=== PATIENT | male | born 1945 | race Caucasian/White ===

== ENCOUNTER 2017-03-05 21:46 | Emergency (ER) | payer BC ==
[2017-03-05] MEDS ORDERED: METHYLPREDNISOLONE 40MG/VIAL IM ONE (21:52)
[2017-03-05] MEDS ORDERED: METHYLPREDNISOLONE PF 125MG/VIAL IM ONE (21:56)
--- NOTE | 2017-03-05 21:58 | Emergency Department Record ---
History of Present Illness - General Chief complaint: Rash Stated complaint: RASH ON BOTH LEGS Time Seen by Provider: 03/05/17 21:51 Source: Patient Mode of Arrival: Ambulatory Limitations: No limitations - History of Present Illness Initial comments: 71 yo male presents with a rash to his lower legs. It is mildly itchy. 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 No other current symptoms. No fever, no cough, no shortness of breath. He has Crohn's disease that is very stable. PCP is Gwen. He is on 4mg daily of Prednisone. MD complaint: Rash -: Days(s) (1) Location: LLE, RLE Severity: Moderate Quality: Other (itches) Consistency: Constant Improves with: None Context: Other (working outside around known poison concepcion) Associated symptoms: Denies other symptoms Treatments Prior to Arrival: Other ([facility] [place]) - Related Data Home Medications Medication Instructions Recorded Confirmed Last Taken Alendronate Sodium 70 mg PO WEEKLY 12/02/14 03/05/17 04/11/16 Dicyclomine HCl 10 mg PO BID PRN 12/02/14 03/05/17 11/29/14 Glucosam/Rolly-Msm1/C/Chris/Bosw 1 tab PO DAILY 12/02/14 03/05/17 04/13/16 [Osteo Bi-Flex] Mesalamine [Pentasa] 1,000 mg PO TID 12/02/14 04/13/16 04/13/16 Omeprazole [Prilosec] 20 mg PO DAILY 12/02/14 03/05/17 04/13/16 Alprazolam 0.5 mg PO BID PRN 04/13/16 03/05/17 Unknown Calcium Carbonate/Vitamin D3 1 each PO DAILY 04/13/16 03/05/17 04/13/16 [Oyster Shell Calcium-Vit D Tab] Cholecalciferol (Vitamin D3) 10,000 unit PO DAILY 04/13/16 03/05/17 04/13/16 [Vitamin D3] Iron Polysaccharide Complex 150 mg PO DAILY 04/13/16 03/05/17 04/13/16 [Ferrex 150] Melatonin 10 mg PO QHS PRN 04/13/16 03/05/17 Unknown Multivit-Minerals/FA/Lycopene [One 1 each PO DAILY 08/03/05/17 04/13/16 Daily [employer] retargeting Tablet] Prednisone [Prednisone 1Mg] 4 mg PO DAILY 03/05/17 03/05/17 Unknown Previous Rx's Medication Instructions Recorded Methylprednisolone [Medrol Dose 4 mg PO DAILY #1 tab.ds.pk 03/05/17 Pack] Allergies Allergy/AdvReac Type Severity Reaction Status Date / Time cephalexin monohydrate Allergy RASH Verified 04/13/16 19:29 [From Keflex] codeine [CODEINE] AdvReac Mild NAUSEA Verified 12/02/14 21:25 Review of Systems Constitutional: Denies: Chills, Fever, Weakness Eyes: Denies: Eye discharge, Eye pain, Photophobia ENT: Denies: Congestion, Epistaxis, Throat pain Respiratory: Denies: Cough, Dyspnea Cardiovascular: Denies: Chest pain Endocrine: Denies: Fatigue Gastrointestinal: Denies: Abdominal pain, Diarrhea, Hematochezia, Nausea, Vomiting Genitourinary: Denies: Dysuria, Frequency, Hematuria Musculoskeletal: Denies: Arthralgia, Myalgia, Neck pain Skin: Reports: Bruising, Rash Neurological: Denies: Headache Psychiatric: Denies: Anxiety Hematological/Lymphatic: Denies: Blood Clots, Easy bleeding, Easy bruising, Swollen glands Past Medical History - SOCIAL HISTORY Smoking Status: Former smoker - RESPIRATORY Hx Respiratory Disorders: Yes Hx Pneumonia: Yes (2011) Hx Sleep Apnea: Yes Hx of CPAP: Yes - CARDIOVASCULAR Hx Cardio Disorders: No - NEURO Hx Neuro Disorders: No - GI Hx GI Disorders: Yes Hx Abdominal Pain: Yes (off/on) Hx Crohn's Disease: Yes Hx Reflux: Yes Hx Nausea/Vomiting: Yes (off/on) Hx of Polyps: Yes - Hx Genitourinary Disorders: No - ENDOCRINE Hx Endocrine Disorders: No - MUSCULOSKELETAL Hx Musculoskeletal Disorders: Yes Hx Arthritis: Yes - PSYCH Hx Psych Problems: No - HEMATOLOGY/ONCOLOGY Hx Hematology/Oncology Disorders: Yes Hx Anemia: Yes (currently being treated for) Hx Bruising: Yes Hx Cancer: Yes (skin) Hx Chemotherapy: No Hx Radiation Therapy: No Hx Blood Transfusions: Yes (last-29 years ago) Hx Blood Transfusion Reaction: No Family Medical History Hx HTN: Mother Physical Exam - General General Appearance: Alert, Oriented x3, Cooperative, No acute distress - Head Head exam: Normal inspection - Eye Eye exam: Normal appearance, PERRL. negative: Conjunctival injection - ENT ENT exam: Normal exam Ear exam: Normal external inspection Nasal Exam: Normal inspection Mouth exam: Normal external inspection - Neck Neck exam: Normal inspection, Full ROM. negative: Tenderness - Respiratory Respiratory exam: Normal lung sounds bilaterally. negative: Accessory muscle use, Prolonged expiratory, Respiratory distress, Rhonchi, Stridor, Wheezes - Cardiovascular Cardiovascular Exam: Regular rate, Normal rhythm, Normal heart sounds - GI/Abdominal GI/Abdominal exam: Soft. negative: Tenderness - Rectal Rectal exam: Deferred - exam: Deferred - Extremities Extremities exam: negative: Normal inspection (rash to bilateral anterior shins , erythema, patchy to confleunt), Pedal edema - Back Back exam: Reports: Normal inspection, Full ROM. Denies: Muscle spasm, Rash noted, Tenderness - Neurological Neurological exam: Alert, Normal gait, Oriented X3, Reflexes normal - Psychiatric Psychiatric exam: Normal affect, Normal mood - Skin Skin exam: Erythema, Rash. negative: Cyanosis, Diaphoretic, Mottled, Pallor, Petechiae, Vesicles Distribution of rash: RLE, LLE Course - Reevaluation(s) Reevaluation #1: The rash is consistent with a contact dermatitis He will be placed on Medrol dose pack He was instructed to hold his Prednisone until completed then resume 4mg daily 03/05/17 21:57 Disposition Disposition: Discharge Clinical Impression: Contact dermatitis Qualifiers: Contact dermatitis type: unspecified Contact dermatitis trigger: unspecified trigger Qualified Code(s): L25.9 - Unspecified contact dermatitis, unspecified cause Disposition: Home, Self-Care Condition: (1) Good Instructions: Contact Dermatitis (ED) Additional Instructions: Return if worse, fever, bruising, pus or any new concerns Hold your Prednisone until finished with the Medrol dose pack Call your doctor to follow up first of the week Prescriptions: Methylprednisolone [Medrol Dose Pack] 4 mg PO DAILY #1 tab.ds.pk Forms: Patient Portal Access Time of Disposition: 22:00 Quality - Quality Measures Quality Measures: N/A - Blood Pressure Screening View Details: Yes Blood Pressure Classification: Pre-Hypertensive BP Reading Systolic Measurement: 173 Diastolic Measurement: 85 Screening for High Blood Pressure: < Pre-Hypertensive BP, F/U Documented > [ G8950] Pre-Hypertensive Follow-up Interventions: Referral to alternative/primary care provider.
== END 2017-03-05 22:11 | disposition home or self-care (01) ==
LOC: ER 21:46
DX: L25.9 Unspecified contact dermatitis, unspecified cause (principal)
CPT/HCPCS: 96372; 99283; J2930

== ENCOUNTER 2018-01-03 12:08 | Day surgery (SDC) | payer BC ==
[2018-01-03] MEDS ORDERED: LIDOCAINE 2% MDV (20MG/ML) 20ML VIAL IV ONE (12:09)
[2018-01-03] MEDS ORDERED: PROPOFOL 10 MG/ML VIAL IV ONE (12:09)
--- NOTE | 2018-01-04 13:50 | Operative Note ---
DATE OF SURGERY: 01/03/2018 OPERATION: COLONOSCOPY to the neoterminal ileum. INDICATION: Prior history of Crohn disease. The patient returns at this time for surveillance. Clinically he is doing well with a combination of low-dose prednisone (5 mg) and Pentasa daily. ANESTHESIA: Intravenous sedation was administered by the department of anesthesiology and included Diprivan titrated to effect. PROCEDURE: Following informed consent from this alert individual including a discussion of the risks and benefits of the procedure and an opportunity for the patient to ask questions, the patient was in the left lateral decubitus position. A digital rectal examination was performed. No abnormalities were noted. Following this, the Olympus [id number] video colonoscope was inserted into the rectum without resistance. The rectal mucosa had a normal appearance with normal folds and distensibility. The sigmoid colon likewise was free from changes. The colonoscope was advanced to 40 cm from the anal verge where an anastomosis was noted with the small bowel. There were superficial ulcerations noted around the anastomotic site but the anastomosis itself was widely patent and seemed fairly healthy without structuring. The neoterminal ileum was cannulated for approximately 20 cm and found to be normal. From this point, the colonoscope was then withdrawn. Biopsies were taken from the area of inflammation at the anastomotic site where superficial ulcerations were noted. The colonoscope was then withdrawn through the remaining colon. No additional changes were appreciated. Retroflexion in the rectum was accomplished with air insufflation and failed to demonstrate any abnormalities. The colon preparation throughout was good. The patient tolerated the procedure well and was returned to the recovery area in stable condition. IMPRESSION: 1. Superficial ulcerations and erythema with edema at the anastomotic site between the colon and neoterminal ileum. However, the anastomotic site itself was widely patent. Biopsies taken from the area of inflammation. 2. Normal neoterminal ileum. 3. Normal colon otherwise. RECOMMENDATIONS: The patient will continue on his current medical regiment. Further recommendations may be forthcoming pending results of biopsy obtained today. Followup will be with Dr. Diego Hidalgo as well. As always, thank you for allowing me to participate in the care of your patient. CC: Bogdan YOUSSEF
== END 2018-01-03 13:57 | disposition home or self-care (01) ==
LOC: HOP 12:08
PROVIDERS: ATTEND Internal Medicine Gastroenterology
DX: Z12.11 Encounter for screening for malignant neoplasm of colon (principal); K50.90 Crohn's disease, unspecified, without complications; K52.9 Noninfective gastroenteritis and colitis, unspecified

== ENCOUNTER 2019-05-23 12:16 | Observation (INO) | payer BC ==
[2019-05-23] MEDS ORDERED: NITROGLYCERIN 0.4MG SL TABLET #25 BTL SL ONE (12:36)
[2019-05-23] MEDS ORDERED: ASPIRIN 81 MG CHEWABLE TABLET PO ONE (12:36)
--- NOTE | 2019-05-23 12:43 | Emergency Department Record ---
History of Present Illness - General Chief Complaint: Chest Pain Stated Complaint: CHEST PAIN Time Seen by Provider: 05/23/19 12:36 Source: Patient Mode of Arrival: Wheelchair Limitations: No limitations - History of Present Illness Initial Comments: Pt to the ED from home with his for c/o chest pain. Pt states he has had pain for 5 days in the right sternal area into the right shoulder. 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 There is no left CP or radiation. No AGNIESZKA, no nausea or diaphoresis. He has no hx of cardiac disease, no smoking, no HTN or DM. No family hx of cardiac . His pain is constant unless "I find just the right position to sit". He has not needed to stop his wood splitting due to pain. No lightheaded symptoms. Onset/Timin -: Days(s) Onset: Other Pain Location: Substernal Pain Radiation: None Severity scale (1-10): 4 Quality: Tightness Consistency: Constant, Intermittent Improves With: Nothing Worsens With: Nothing Treatments Prior to Arrival: None - Related Data Home Medications Medication Instructions Recorded Confirmed Last Taken Alendronate Sodium [Fosamax] 70 mg PO WEEKLY 05/23/19 05/23/19 Unknown Allergies Allergy/AdvReac Type Severity Reaction Status Date / Time amoxicillin trihydrate Allergy Intermediate nausea Unverified 02/17/19 14:09 [From Augmentin] potassium clavulanate Allergy Intermediate nausea Unverified 02/17/19 14:09 [From Augmentin] cephalexin monohydrate Allergy RASH Unverified 02/17/19 14:09 [From Keflex] codeine [CODEINE] AdvReac Mild NAUSEA Unverified 02/17/19 14:09 Travel Screening - Travel/Exposure Within Last 30 Days Have you traveled within the last 30 days?: No Review of Systems Constitutional: Denies: Chills, Fever Eyes: Denies: Eye discharge, Photophobia ENT: Denies: Congestion, Ear pain Respiratory: Denies: Cough, Dyspnea Cardiovascular: Reports: As per HPI, Chest pain. Denies: Arrhythmia, Dyspnea on exertion, Palpitations, Syncope Endocrine: Denies: Fatigue Gastrointestinal: Denies: Abdominal pain, Diarrhea, Nausea, Vomiting Musculoskeletal: Reports: Other (hx of right shoulder rotor cuff issues). Denies: Arthralgia, Back pain, Joint swelling Skin: Denies: Bruising, Rash Neurological: Denies: Headache, Tingling, Tremors, Weakness Psychiatric: Denies: Anxiety, Suicidal thoughts Hematological/Lymphatic: Denies: Anemia, Swollen glands Past Medical History - SOCIAL HISTORY Smoking Status: Former smoker - RESPIRATORY Hx Respiratory Disorders: Yes Hx Pneumonia: Yes (2012) Hx Sleep Apnea: Yes Hx of CPAP: Yes - CARDIOVASCULAR Hx Cardio Disorders: No - NEURO Hx Neuro Disorders: No - GI Hx GI Disorders: Yes Hx Abdominal Pain: Yes (off/on) Hx Crohn's Disease: Yes Hx Reflux: Yes Hx of Polyps: Yes - Hx Genitourinary Disorders: Yes Hx Prostate Problems: Yes (enlarged) - ENDOCRINE Hx Endocrine Disorders: No - MUSCULOSKELETAL Hx Musculoskeletal Disorders: Yes Hx Arthritis: Yes - PSYCH Hx Psych Problems: No - HEMATOLOGY/ONCOLOGY Hx Hematology/Oncology Disorders: Yes Hx Anemia: Yes (currently being treated for) Hx Bruising: Yes Hx Cancer: Yes (skin) Hx Chemotherapy: No Hx Radiation Therapy: No Hx Blood Transfusions: Yes (last-29 years ago) Hx Blood Transfusion Reaction: No Family Medical History Any Significant Family History?: Yes Hx HTN: Mother Physical Exam - General General Appearance: Alert, Oriented x3, Cooperative, No acute distress - Head Head exam: Normal inspection - Eye Eye exam: Normal appearance, PERRL - ENT ENT exam: Normal exam, Mucous membranes moist, Normal external ear exam, Normal orophraynx, TM's normal bilaterally - Neck Neck exam: Normal inspection, Full ROM. negative: Tenderness - Respiratory Respiratory exam: Normal lung sounds bilaterally, Chest wall tenderness (tender to right sternal border without skin lesions. Pt localized with one finger the area of pain. ), Other. negative: Respiratory distress - Cardiovascular Cardiovascular Exam: Regular rate, Normal rhythm, Normal heart sounds Peripheral Pulses: 2+: Radial (R), Radial (L) - GI/Abdominal GI/Abdominal exam: Soft, Normal bowel sounds. negative: Tenderness - Extremities Extremities exam: Normal inspection, Full ROM, Normal capillary refill. negative: Tenderness - Back Back exam: Reports: Normal inspection, Full ROM. Denies: Muscle spasm, Tenderness - Neurological Neurological exam: Alert, Normal gait - Psychiatric Psychiatric exam: Normal affect, Normal mood - Skin Skin exam: Normal color. 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 Some lateral ST depressions. No prior 12 lead comp. Reevaluation #2: 05/23/19 12:44 IV, Labs ordered.. Pt on Prednisone for Chron's and will not take ASA. Reevaluation #3: 05/23/19 13:41 Trop normal but DDimer elevated. Tyl given IV for pain. CTA ordered of chest for PE> Pt and aware. Reevaluation #4: 05/23/19 14:39 CTA without evidence of PE. Calcification of Coronary arteries noted. Pt is 73 with CP related to activity. We discussed serial testing of Trops and Cardio consult. He agrees with plan for admission. Calls placed for admit. Medical Decision Making - Lab Data Result diagrams: 05/23/19 12:30 05/23/19 12:30 Disposition Disposition: Admit Clinical Impression: Chest pain Disposition: Still a Patient at [facility] Decision to Admit: Admit from ER Decision to Admit Date: 05/23/19 Decision to Admit Time: 14:41 Accepting Physician: Martha Time Discussed w/Accepting Physician: 14:41 (Amanda RIVERA) Condition: (3) Guarded Forms: Patient Portal Access Time of Disposition: 14:41 Quality - Quality Measures Quality Measures: N/A - Blood Pressure Screening Does Patient Have Any of the Following: No Blood Pressure Classification: Hypertensive Reading Systolic Measurement: 179 Diastolic Measurement: 99 Screening for High Blood Pressure: < Pre-Hypertensive BP, F/U Documented > [G8950] Pre-Hypertensive Follow-up Interventions: Follow-up with rescreen every year.
[2019-05-23 12:48] LABS: ABSOLUTE NEUTROPHIL COUNT 3.75; BASO % 0.5 % (0-6); EOS % 3.3 % (0-6); GRAN % 61.5 % (47-80); HEMATOCRIT 49.2 % (42.0-52.0); HEMOGLOBIN 16.2 gm/dl (14.0-18.0); LYMPH % 25.5 % (16-45); MEAN CELL VOLUME 92.1 fl (81-97); MEAN CORPUSCULAR HEMOGLOBIN 30.3 pg (27-33); MEAN CORPUSCULAR HGB CONC 32.9 g/dl (32-36); MEAN PLATELET VOLUME 9.8 fl (7.4-10.4); MONO % 9.2 % (0-9); PLATELET COUNT 308 K/uL (130-400); RED BLOOD COUNT 5.34 M/uL (4.40-5.70); RED CELL DISTRIBUTION WIDTH 13.3 % (11.5-14.5); WHITE BLOOD COUNT W/O DIFF 6.1 K/uL (4.2-12.2)
[2019-05-23 13:08] LABS: BLOOD UREA NITROGEN 10 mg/dL (8-23); EST GLOMERULAR FILTRATION RATE > 60 mL/min
[2019-05-23 13:11] LABS: GLUCOSE,RANDOM 116 mg/dL (74-109)
[2019-05-23 13:16] LABS: CKMB 3.3 ng/mL (<6.73)
[2019-05-23 13:17] LABS: NTpro B-NATRIURETIC PEPTIDE 43.98 pg/mL (<125)
[2019-05-23] MEDS ORDERED: ACETAMINOPHEN 1,000 MG/100 ML BTL IVPB ONE (13:41)
[2019-05-23] MEDS ORDERED: PANTOPRAZOLE SODIUM 40 MG TABLET PO SCH (17:00)
[2019-05-23] MEDS: MESALAMINE 500 MG CAPSULE.SA PO SCH ×2 (17:27→22:11)
[2019-05-23] MEDS: PREDNISONE 1 MG TABLET PO SCH (17:27)
[2019-05-23] MEDS: DICYCLOMINE HCL 10 MG CAPSULE PO SCH (17:27)
[2019-05-23] MEDS: ACETAMINOPHEN 500 MG TABLET PO PRN (20:01)
--- NOTE | 2019-05-23 22:05 | History & Physical ---
History of Present Illness - Date of Service Date of Service for History & Physical: 05/23/19 - History of Present Illness Admitting Diagnosis: Chest pain History of Present Illness: 73 yo male presents to ER for right sided CP starting 4-5 days ago but pr ogressing while splitting wood. Pt reports throbbing, achy right sided CP that is not reproducible with palpation. Pt denies personal or familial heart disease. PMH Former smoker, hyperlipidemia, Crohn's, and squamous skin CA. EKG neg for acute process but shows PAC, RBBB and inverted T waves, trop negative D dimer 0.72, CTA neg for PE but shows calcification on the cardiac arteries WBC 6.1, Hct 49.2, Hct 49.2, Plt 308 Na 140, K 3.9, BUN 10, Cr 1.0, GFR>60, glucose 116, CKMB 3.3 BNP 46.98 HR 67, RR 18, BP 186/94, 100% RA , pain 4/10 Given NTG in ER, pt reports increased pain but pain 2/10 with acetaminophen IVPB Pt admitted for repeat trop, EKG, ECHO, stress and cardiology consult 05/23/19 Pt resting, sitting bedside with present. Pt in no distress, pain is 2/10 and not reproducible with palpation. Lungs CTA, heart RRR, pulses +3 radial, DP, PT, trace pitting edema noted BLE. Pt denies any ADKINS, claudication pain, uncontrolled edema, previous CP. PCP Gwen Travel Screening - Travel/Exposure Within Last 30 Days Have you traveled within the last 30 days?: No - Travel/Exposure Within Last Year Have you traveled outside the [place] in the last year?: No - Additonal Travel Details Have you been exposed to anyone with a communicable illness?: No - Travel Symptoms Symptom Screening: None Review of Systems Constitutional: Denies: Chills, Fever Eyes: Denies: Eye discharge, Photophobia ENT: Denies: Congestion, Ear pain Respiratory: Denies: Cough, Dyspnea Cardiovascular: Reports: As per HPI, Chest pain. Denies: Arrhythmia, Dyspnea on exertion, Palpitations, Syncope Endocrine: Denies: Fatigue Gastrointestinal: Denies: Abdominal pain, Diarrhea, Nausea, Vomiting Musculoskeletal: Reports: Other (hx of right shoulder rotor cuff issues). Denies: Arthralgia, Back pain, Joint swelling Skin: Denies: Bruising, Rash Neurological: Denies: Headache, Tingling, Tremors, Weakness Psychiatric: Denies: Anxiety, Suicidal thoughts Hematological/Lymphatic: Denies: Anemia, Swollen glands Past Medical History - SOCIAL HISTORY Smoking Status: Former smoker Alcohol Use: Rare Drug Use: None - RESPIRATORY Hx Respiratory Disorders: Yes Hx Pneumonia: Yes (2011) Hx Sleep Apnea: Yes Hx of CPAP: Yes - CARDIOVASCULAR Hx Cardio Disorders: No - NEURO Hx Neuro Disorders: No - GI Hx GI Disorders: Yes Hx Abdominal Pain: Yes (off/on) Hx Crohn's Disease: Yes Hx Reflux: Yes Hx of Polyps: Yes - Hx Genitourinary Disorders: Yes Hx Prostate Problems: Yes (enlarged) - ENDOCRINE Hx Endocrine Disorders: No - MUSCULOSKELETAL Hx Musculoskeletal Disorders: Yes Hx Arthritis: Yes - PSYCH Hx Psych Problems: No - HEMATOLOGY/ONCOLOGY Hx Hematology/Oncology Disorders: Yes Hx Anemia: Yes (currently being treated for) Hx Bruising: Yes Hx Cancer: Yes (skin) Hx Chemotherapy: No Hx Radiation Therapy: No Hx Blood Transfusions: Yes (last-29 years ago) Hx Blood Transfusion Reaction: No Family Medical History Any Significant Family History?: Yes Hx HTN: Mother H&P Meds/Allergies - Allergies Allergies: Allergies Allergy/AdvReac Type Severity Reaction Status Date / Time amoxicillin trihydrate Allergy Intermediate nausea Unverified 02/17/19 14:09 [From Augmentin] potassium clavulanate Allergy Intermediate nausea Unverified 02/17/19 14:09 [From Augmentin] cephalexin monohydrate Allergy RASH Unverified 02/17/19 14:09 [From Keflex] codeine [CODEINE] AdvReac Mild NAUSEA Unverified 02/17/19 14:09 - Home Medications Home Medications Medication Instructions Recorded Confirmed Last Taken Alendronate Sodium [Fosamax] 70 mg PO WEEKLY 05/23/19 05/23/19 Unknown - Active Medications Active Medications: Current Medications Acetaminophen (Tylenol 500mg Tab) 1,000 mg PO Q6H PRN PRN Reason: PAIN - MILD(1-4)/FEVER Last Admin: 05/23/19 20:01 Dose: 1,000 mg Documented by: Dicyclomine HCl (Bentyl) 10 mg PO DAILY [facility] Last Admin: 05/23/19 17:27 Dose: 10 mg Documented by: Mesalamine (Pentasa) 1,000 mg PO TID [facility] Last Admin: 05/23/19 17:27 Dose: 1,000 mg Documented by: Pantoprazole Sodium (Protonix) 40 mg PO DAILY [facility] Last Admin: 05/23/19 17:29 Dose: 40 mg Documented by: Prednisone (Prednisone 1mg) 4 mg PO DAILY [facility] Last Admin: 05/23/19 17:27 Dose: 4 mg Documented by: Physical Exam - Vital Signs Vital Signs: Vital Signs - Last 24 Hrs Pulse Pulse Pulse Resp BP BP BP 05/23/19 16:25 55 L 16 156/86 05/23/19 16:19 58 L 18 154/84 05/23/19 14:21 56 L 18 179/99 05/23/19 12:50 59 L 119/66 05/23/19 12:42 68 147/66 05/23/19 12:31 67 18 186/94 Pulse Ox 05/23/19 16:25 100 05/23/19 16:19 05/23/19 14:21 100 05/23/19 12:50 05/23/19 12:42 05/23/19 12:31 100 - General General Appearance: Alert, Oriented x3, Cooperative, No acute distress Limitations: No limitations - Head Head exam: Normal inspection - Eye Eye exam: Normal appearance, PERRL - ENT ENT exam: Normal exam, Mucous membranes moist, Normal external ear exam, Normal orophraynx, TM's normal bilaterally - Neck Neck exam: Normal inspection, Full ROM. negative: Tenderness - Respiratory Respiratory exam: Normal lung sounds bilaterally, Chest wall tenderness (tender to right sternal border without skin lesions. Pt localized with one finger the area of pain. ), Other. negative: Respiratory distress - Cardiovascular Cardiovascular Exam: Regular rate, Normal rhythm, Normal heart sounds Peripheral Pulses: 2+: Radial (R), Radial (L), Dorsalis Pedis (R), Dorsalis Pedis (L) - GI/Abdominal GI/Abdominal exam: Soft, Normal bowel sounds. negative: Tenderness - Extremities Extremities exam: Normal inspection, Full ROM, Normal capillary refill. negative: Tenderness - Back Back exam: Reports: Normal inspection, Full ROM. Denies: Muscle spasm, Tenderness - Neurological Neurological exam: Alert, Normal gait - Psychiatric Psychiatric exam: Normal affect, Normal mood - Skin Skin exam: Normal color. negative: Cyanosis, Rash Results - Labs Result Diagrams: 05/23/19 12:30 05/23/19 12:30 Labs Last 24 Hours: Laboratory Results - last 24 hr 05/23/19 05/23/19 05/23/19 12:30 12:30 12:30 WBC 6.1 RBC 5.34 Hgb 16.2 Hct 49.2 MCV 92.1 MCH 30.3 MCHC 32.9 RDW 13.3 Plt Count 308 MPV 9.8 Gran % 61.5 Lymphocytes % 25.5 Monocytes % 9.2 H Eosinophils % 3.3 Basophils % 0.5 Absolute Neutrophils 3.75 D-Dimer 0.72 H Sodium 140 Potassium 3.9 Chloride 101 Carbon Dioxide 24.0 Anion Gap 15.0 BUN 10 Creatinine 1.0 Estimated GFR > 60 Random Glucose 116 H Calcium 10.0 CK-MB (CK-2) 3.3 Troponin T < 0.010 NT-Pro-B Natriuret Pep 43.98 VTE H&P Assessment - Risk for VTE Risk for VTE: Yes Risk Level: Moderate Risk Assessment Date: 05/23/19 Risk Assessment Time: 22:06 VTE Orders Placed or Will Be Placed: Yes Plan - Detailed Diagnosis and Plan (1) Chest pain Current Visit: Yes Status: Acute Base Code: R07.9 - CHEST PAIN, UNSPECIFIED Comment: 05/23/19 -CP 2/10 after tylenol -Trop neg x1, EKG neg for acute process -ECHO, stress, card consult pending -continue cardiac monitoring, repeat trop ekg (2) DVT prophylaxis Current Visit: Yes Status: Acute Base Code: Z29.9 - ENCOUNTER FOR PROPHYLACTIC MEASURES, UNSPECIFIED Comment: 05/23/19 -pt refused ASA in ER, lovenox in the am for DVT proph (3) Full code status Current Visit: Yes Status: Acute Base Code: Z78.9 - OTHER SPECIFIED HEALTH STATUS Comment: 05/23/19 -Full code
[2019-05-23] MEDS ORDERED: DIPHENHYDRAMINE HCL 25 MG CAPSULE PO ONE (22:08)
[2019-05-24] MEDS: ACETAMINOPHEN 500 MG TABLET PO PRN ×2 (01:12→05:48)
[2019-05-24] MEDS ORDERED: CALCIUM CARBONATE 500 MG TAB.CHEW PO PRN (02:23)
[2019-05-24] MEDS: PRILOSEC OTC 20 MG PO SCH ×2 (07:25→11:39)
--- NOTE | 2019-05-24 08:16 | CT ANGIOGRAM REPORT ---
EXAM: CTA OF THE THORAX HISTORY: CHEST PAIN FOR FIVE DAYS, GETTING WORSE. MILD ELEVATED D-DIMER. TECHNIQUE: CTA of the thorax was conducted after administration of 85 ml of Omnipaque 350 with reconstruction of coronal and sagittal planes. MIP reconstructions in the coronal and sagittal planes were provided. Comparison: No prior CT's available for comparison. FINDINGS: No CT evidence of pulmonary artery embolism. The heart is at the upper limits of normal in size, no pericardial effusion. Calcified atherosclerosis of the LAD noted. The aorta appears normal in size, no evidence of dissection. There are a few subcentimeter mediastinal and hilar lymph nodes, no adenopathy. The airways appear patent. Mild basilar atelectasis noted. No consolidation or significant emphysematous changes. There are a few 4 mm pulmonary nodules present. The osseous structures appear within normal limits. The upper abdomen appears unremarkable. The bowel anastomosis appears unremarkable. IMPRESSION: 1. NO CT EVIDENCE OF PULMONARY ARTERY EMBOLISM. NO ACUTE CARDIOPULMONARY PROCESS IDENTIFIED. 2. MILD CALCIFIED ATHEROSCLEROSIS OF THE PROXIMAL LAD CORONARY ARTERY. JOB NUMBER: [id number] [facility]
[2019-05-24] MEDS ORDERED: ENOXAPARIN 40 MG/0.4 ML SYR SQ SCH (10:00)
[2019-05-24 10:13] LABS: ABSOLUTE NEUTROPHIL COUNT 6.72; BASO % 0.2 % (0-6); EOS % 1.7 % (0-6); GRAN % 75.8 % (47-80); HEMATOCRIT 45.3 % (42.0-52.0); HEMOGLOBIN 15.2 gm/dl (14.0-18.0); LYMPH % 14.7 % (16-45); MEAN CELL VOLUME 90.6 fl (81-97); MEAN CORPUSCULAR HEMOGLOBIN 30.4 pg (27-33); MEAN CORPUSCULAR HGB CONC 33.6 g/dl (32-36); MEAN PLATELET VOLUME 9.1 fl (7.4-10.4); MONO % 7.6 % (0-9); PLATELET COUNT 279 K/uL (130-400); WHITE BLOOD COUNT W/O DIFF 8.9 K/uL (4.2-12.2)
[2019-05-24 10:28] LABS: BLOOD UREA NITROGEN 8 mg/dL (8-23); CREATININE 0.9 mg/dL (0.7-1.2); EST GLOMERULAR FILTRATION RATE > 60 mL/min; GLUCOSE,RANDOM 135 mg/dL (74-109)
[2019-05-24] MEDS ORDERED: ASPIRIN 81 MG CHEWABLE TABLET PO ONE (11:14)
--- NOTE | 2019-05-24 11:28 | Discharge Summary ---
Providers Discharge Summary Date: 05/24/19 Date of admission: 05/23/19 16:06 Expected Date of Discharge: 05/24/19 Attending physician: JULIA SEALS Primary care physician: KULWINDER CHEEK D.O. Consults: Consult Orders 05/23/19 16:48 Consult - Cardiology NOW Consulting Provider: Camilo Martinez Physician Instructions: Reason For Exam: CP Does pt have current orthodontist assistant?: Unknown Physical Exam - Vital Signs Vital Signs: Vital Signs - Last 24 Hrs Pulse Pulse Pulse Resp BP BP BP 05/24/19 09:00 18 05/24/19 08:00 56 L 55 L 18 142/72 05/24/19 05:50 05/23/19 16:25 55 L 16 156/86 05/23/19 16:19 58 L 18 154/84 05/23/19 14:21 56 L 18 179/99 05/23/19 12:50 59 L 119/66 05/23/19 12:42 68 147/66 05/23/19 12:31 67 18 186/94 Pulse Ox 05/24/19 09:00 05/24/19 08:00 96 05/24/19 05:50 99 05/23/19 16:25 100 05/23/19 16:19 05/23/19 14:21 100 05/23/19 12:50 05/23/19 12:42 05/23/19 12:31 100 - General General Appearance: Alert, Oriented x3, Cooperative, No acute distress Limitations: No limitations - Head Head exam: Normal inspection - Eye Eye exam: Normal appearance, PERRL - ENT ENT exam: Normal exam, Mucous membranes moist, Normal external ear exam, Normal orophraynx, TM's normal bilaterally - Neck Neck exam: Normal inspection, Full ROM. negative: Tenderness - Respiratory Respiratory exam: Normal lung sounds bilaterally, Chest wall tenderness (tender to right sternal border without skin lesions. Pt localized with one finger the area of pain. ), Other. negative: Respiratory distress - Cardiovascular Cardiovascular Exam: Regular rate, Normal rhythm, Normal heart sounds Peripheral Pulses: 2+: Radial (R), Radial (L), Dorsalis Pedis (R), Dorsalis Pedis (L) - GI/Abdominal GI/Abdominal exam: Soft, Normal bowel sounds. negative: Tenderness - Extremities Extremities exam: Normal inspection, Full ROM, Normal capillary refill. negative: Tenderness - Back Back exam: Reports: Normal inspection, Full ROM. Denies: Muscle spasm, Tenderne ss - Neurological Neurological exam: Alert, Normal gait - Psychiatric Psychiatric exam: Normal affect, Normal mood - Skin Skin exam: Normal color. negative: Cyanosis, Rash Hospitalization - Hospitalization Admission Diagnosis: Chest pain - Problem List/Discharge Diagnosis (1) Chest pain Current Visit: Yes Status: Acute Base Code: R07.9 - CHEST PAIN, UNSPECIFIED Comment: 05/23/19 -CP 10/02 after tylenol -Trop neg x1, EKG neg for acute process -ECHO, stress, card consult pending -continue cardiac monitoring, repeat trop ekg 05/24/19 -trop called back critical 0.707, NSTEMI called Dr Mcgee made aware, Dr Chiu will take over at [facility] Once Abel called, Dr Bardales accepts for hosptialist Pt finally accepted ASA, transfering to [facility] via EMS to room 421-2 Pt Imani called and updated and will met him at [facility] as she is already in [place] (2) DVT prophylaxis Current Visit: Yes Status: Acute Base Code: Z29.9 - ENCOUNTER FOR PROPHYLACTIC MEASURES, UNSPECIFIED Comment: 05/23/19 -pt refused ASA in ER, lovenox in the am for DVT proph (3) Full code status Current Visit: Yes Status: Acute Base Code: Z78.9 - OTHER SPECIFIED HEALTH STATUS Comment: 05/23/19 -Full code - Disposition pt is NSTEMI, VSS, transfer to [facility] for urgent heart cath - Hospitalization Course Disposition: Acute Care Hospital Transfer Hospital Course: 73 yo male presents to ER for right sided CP starting 4-5 days ago but progressing while splitting wood. Pt reports throbbing, achy right sided CP that is not reproducible with palpation. Pt denies personal or familial heart disease. PMH Former smoker, hyperlipidemia, Crohn's, and squamous skin CA. EKG neg for acute process but shows PAC, RBBB and inverted T waves, trop negative D dimer 0.72, CTA neg for PE but shows calcification on the cardiac arteries WBC 6.1, Hct 49.2, Hct 49.2, Plt 308 Na 140, K 3.9, BUN 10, Cr 1.0, GFR>60, glucose 116, CKMB 3.3 BNP 46.98 HR 67, RR 18, BP 186/94, 100% RA , pain 4/10 Given NTG in ER, pt reports increased pain but pain 2/10 with acetaminophen IVPB Pt admitted for repeat trop, EKG, ECHO, stress and cardiology consult 05/23/19 Pt resting, sitting bedside with present. Pt in no distress, pain is 2/10 and not reproducible with palpation. Lungs CTA, heart RRR, pulses +3 radial, DP, PT, trace pitting edema noted BLE. Pt denies any ADKINS, claudication pain, uncontrolled edema, previous CP. 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 EKG NOW 05/23/19 16:22 Girls Tennis Coach .Continuous EKG QDX2@0600 05/23/19 16:48 Echo W/CF & Cardiac Doppler NOW 05/23/19 21:50 Stress EKG/STD Treadmill NOW 05/24/19 11:08 EKG NOW Abnormal Labs: Abnormal Lab Results 05/23/19 05/23/19 05/23/19 Range/Units 12:30 12:30 12:30 Lymphocytes % (16-45) % Monocytes % 9.2 H (0-9) % D-Dimer 0.72 H (0-0.59) mg/L FEU Sodium (136-145) mmol/L Chloride (98-107) mmol/L Random Glucose 116 H (74-109) mg/dL Troponin T (0-0.010) ng/mL 05/24/19 05/24/19 05/24/19 Range/Units 10:07 10:07 10:07 Lymphocytes % 14.7 L (16-45) % Monocytes % (0-9) % D-Dimer (0-0.59) mg/L FEU Sodium 130 L (136-145) mmol/L Chloride 93 L (98-107) mmol/L Random Glucose 135 H (74-109) mg/dL Troponin T 0.707 H* (0-0.010) ng/mL Condition at Discharge: (5) Critical Discharge Medications - Discharge Medications Home Medications: Ambulatory Orders Mesalamine [Pentasa] 1,000 mg PO TID 12/02/14 [Last Taken 04/13/16] Omeprazole [Prilosec] 20 mg PO DAILY 12/02/14 [Last Taken 04/13/16] Cholecalciferol (Vitamin D3) [Vitamin D3] 5,000 unit PO DAILY 04/13/16 [Last Taken 04/13/16] Prednisone [Prednisone 1Mg] 4 mg PO DAILY 03/05/17 [Last Taken Unknown] Dicyclomine HCl [Bentyl] 10 mg PO DAILY cap 06/11/17 [Last Taken Unknown] Glucosamine/D3/Boswellia Trish [Osteo Bi-Flex Caplet] 1 each PO DAILY tab 03/10/18 [Last Taken Unknown] Multivit-Min36/Iron/Folic Acid [Geritol Complete Tablet] 1 each PO DAILY tab 03/10/18 [Last Taken Unknown] Alendronate Sodium [Fosamax] 70 mg PO WEEKLY 05/23/19 [Last Taken Unknown] Acetaminophen [Tylenol 500Mg Tab] 1,000 mg PO Q6H PRN tablet 05/24/19 [Last Taken Unknown] Calcium Carbonate [Tums] 500 mg PO Q4H PRN tab.chew 05/24/19 [Last Taken Unknown] Dicyclomine HCl [Bentyl] 10 mg PO DAILY cap 05/24/19 [Last Taken Unknown] Mesalamine [Pentasa] 1,000 mg PO TID capsule.sa 05/24/19 [Last Taken Unknown] Prednisone [Prednisone 1Mg] 4 mg PO DAILY tablet 05/24/19 [Last Taken Unknown] Discharge Plan - Discharge Instructions Quality Measures - Quality Measures Quality Measures: Advance Directives, Documentation of Current Medications in Medical Record, Elder Maltreatment Screen and Follow-Up Plan, Screening for High Blood Pressure and F/U Documented - Current Medications Quality Measure: Measure #130: Documentation of Current Medications Documentation of Current Medications: <Current Medications Documented/Reviewed> [G8427] - Blood Pressure Screening Quality Measure: Screening for High Blood Pressure and Follow-Up Documented Does Patient Have Any of the Following: No Blood Pressure Classification: Pre-Hypertensive BP Reading Systolic Measurement: 154 Diastolic Measurement: 84 Screening for High Blood Pressure: < Pre-Hypertensive BP, F/U Documented > [G8950] Pre-Hypertensive Follow-up Interventions: Referral to alternative/primary care provider. - Advance Directives Quality Measure: Measure #47: Care Plan Advance Directives Established: No Advance Directives Information Provided To Patient: Declined Advance Directives on File: No Living Will: Yes Power of Production Ski Repairer: Yes Power of Production Ski Repairer Name: Juan Chiu (Son) Advance Care Planning: <Care Plan/Decision Maker Documented; Discussed & Documented> [[id number]] - Elder Abuse Suspicion Index Screening: Elder Abuse Suspicion Index Screening Rely on people for bathing, dressing, shopping, banking, etc: No Prevented from getting food, clothes, medication, etc: No Made to feel shamed or threatened by someone: No Forced to sign papers or use money against will: No Feel afraid, touched in ways not wanted or hurt physically: No Poor eye contact, withdrawn, malnourished, cuts or bruises: No Screening Result: Negative result EASI Reference Information: Elmo SETHI, Jolie C, Celestino D, Leo Landeros.Development and validation of a tool to assist physicians identification of elder abuse: The Elder Abuse Suspicion Index (EASI ). Journal of Elder Abuse and Neglect, 2008; 20 (3): 276-300. - Elder Maltreatment Screen Quality Measures: Elder Maltreatment Screen and Follow-Up Plan Elder Maltreatment Screen: <Negative, No Follow-Up Plan Required> [G9228]
[2019-05-24] MEDS: DICYCLOMINE HCL 10 MG CAPSULE PO SCH (11:39)
[2019-05-24] MEDS: MESALAMINE 500 MG CAPSULE.SA PO SCH (11:39)
[2019-05-24] MEDS: PREDNISONE 1 MG TABLET PO SCH (11:39)
[2019-05-24] MEDS ORDERED: HEPARIN SODIUM 5,000 UNIT/ML VIAL SQ ONE (11:43)
[2019-05-24] MEDS ORDERED: HEPARIN SODIUM/D5W 25,000 UNITS/500 ML BAG IV SCH (11:45)
[2019-05-24 11:46] LABS: INR 1.1; PROTHROMBIN TIME (PATIENT) 11.3 SECONDS (9.5-12.1)
--- NOTE | 2019-05-25 12:58 | RADIOLOGY REPORT ---
EXAM: CHEST, TWO VIEWS HISTORY: ANTERIOR RIGHT CHEST AND SHOULDER PAIN, SEVERE. TECHNIQUE: Two views of the chest were obtained. Comparison: 04/13/16 chest x-ray. FINDINGS: No acute consolidation, pneumothorax, or pleural effusions identified. The heart size appears within normal limits. No acute abnormality identified. IMPRESSION: NO ACUTE CARDIOPULMONARY PROCESS IDENTIFIED. JOB NUMBER: [id number] MTDD
== END 2019-05-24 11:45 | disposition short-term general hospital (02) ==
LOC: ER 12:16 → MEDSURG 16:06
PROVIDERS: ADMIT Internal Medicine; ATTEND Internal Medicine
DX: R07.9 Chest pain, unspecified (principal); D64.9 Anemia, unspecified; K50.90 Crohn's disease, unspecified, without complications; K21.9 Gastro-esophageal reflux disease without esophagitis; M19.90 Unspecified osteoarthritis, unspecified site; N40.0 Benign prostatic hyperplasia without lower urinary tract symptoms; E78.5 Hyperlipidemia, unspecified; Z29.9 Encounter for prophylactic measures, unspecified; Z85.828 Personal history of other malignant neoplasm of skin; Z87.891 Personal history of nicotine dependence
CPT/HCPCS: 71046; 71275; 80048; 82553; 83880; 84484; 85025; 85379; 85610; 85730; 93005; 93010; 93306; 94760; 99217; 99220; J7512